=== PATIENT | female | born 1955 | race Two or more races ===

== ENCOUNTER 2020-02-16 22:45 | Emergency (ER) | payer SELFPAY ==
[~2020-02-16] VITALS: Ht 162.6 cm; Wt 86.2 kg
[2020-02-16 23:00] VITALS: BP 132/72
[2020-02-16 23:18] LABS: BASOPHILS % (AUTO) 2.5 % (0.0-2.0); EOSINOPHILS % (AUTO) 2.1 % (0.0-3.0); HEMATOCRIT 40.9 % (37.0-47.0); HEMOGLOBIN 14.9 G/DL (12.0-16.0); LYMPHOCYTES % (AUTO) 32.4 % (20.0-45.0); MEAN CORPUSCULAR VOLUME 90 FL (80-99); MONOCYTES % (AUTO) 8.5 % (1.0-10.0); NEUTROPHILS % (AUTO) 54.5 % (45.0-75.0); PLATELET COUNT 267 K/UL (150-450); RED BLOOD COUNT 4.55 M/UL (4.20-5.40); WHITE BLOOD COUNT 8.8 K/UL (4.8-10.8)
--- NOTE | 2020-02-16 23:21 | Emergency Room Report ---
History of Present Illness General Chief Complaint: Eye Problems Source: Patient Present Illness HPI 64-year-old female with no prior medical history presents with 2weeks vision loss on the right eye. Denies associated trauma, headache, n/v/d, weakness, chest pain, shortness of breath, fever, neck pain, rash, chest pain, shortness of breath or other symptoms She delayed seeking care until now because she did not want to come to the hospital. She is accompanied by her son who urged her to come to the ER for a checkup. States she feels as if her right lateral 1/3 to half part of her eye is going black in the middle. The patient's symptoms were gradual onset, severity was moderate, duration since 14 days. Quality: Progressive right vision loss Past medical history: Denies Past surgical history: Denies Smoking: Denies Alcohol use: Denies Drug use: Denies Review of systems: CONST: No fevers or chills, No night sweats PULMONARY: No productive cough, No shortness of breath CARDIAC: No chest pain, No palpitations GI: No vomiting, No diarrhea , No melena_or_BRBPR : No dysuria, No hematuria, No discharge NEURO: No new_focal_weakness_or_numbness, No confusion, No vision changes 14 point Review of Systems is otherwise negative except per HPI Physical Exam: GENERAL: Awake_alert_ nontoxic, no acute distress Spo2 98% on RA -normal EYES: Extraocular muscles are intact. Conjunctivae clear. Lids without swelling External: no evidence of periorbital rash, swelling, proptosis, lacerations, abrasions, or foreign body (OU) Lids / Lashes: normal without any lig lag (OU) Conjunctiva: normal, no injection or chemosis (OU) Sclera: white, without any injection (OU) Cornea: clear without any visible defect, foreign body, or corneal ulcer Anterior Chamber: deep, quiet, without any cell or flare (OU) Foreign body: none visualized, upper eyelid flipped (OU) Visual acuity: OD fingers only. Cannot visualize snellen chart OS 20/30 OU 20/30 Pupils: equal, round, and reactive bilaterally Extraocular movements intact without evidence of entrapment Visual henning full to confrontation ENT: External nose and ear normal_in_appearance. Oropharynx clear. Head_atraumatic, Moist_oral_mucosa NECK: No JVD. No meningismus. No thyromegaly. Supple. Trachea midline RESP: Normal respiratory effort. Symmetric rise. No stridor. Clear_to_auscultation_No_rales_No_wheezes CARDIAC: Tachycardic. and regular rhytm. No_significant pedal edema. ABDOMEN: Soft. Nondistended. Nontender_No_rebound_or_guarding. MSK: Normal muscle tone, without rigidity. Extremities without asymmetric deformity or swelling. SKIN: Warm and dry. No visible cyanosis or pallor NEUROLOGIC: Alert, oriented x3. Motor_and_sensation_grossly_intact. No truncal ataxia. Gait_normal Psych: Normal mood and affect, normal judgment and insight - COORDINATION OF CARE Case was discussed with: Patient , Patient's Family Any labs and imaging that were ordered were interpreted as part of the medical decision making: Medical Decision Making/Plan: Differential for progressive R vision loss: retinal detachment, vitreous hemorrhage, ocular migraine, doubt uveitis, primary headache (migraine, tension, cluster), intracranial mass / tumor, DOUBT meningitis, encephalitis, increased intracranial pressure, mastoiditis, dural venous thrombosis, temporal arteritis, acute angle closure glaucoma, among others. On exam, patient is unable to visualize anything from her R eye. L eye VA is 20/30 Ocular US performed at bedside shows large posterior retinal detachment anchored at the optic disk. Slit lamp shows hazy retina. VA is only intact to fingers on the R. Suspect mac off retinal detachment. Patient was informed of her diagnosis and I educated both the patient and the son that they need an emergent follow up with ophthalmology Shared medical decision making performed. Son verbalizes his understanding that mother needs to go to tertiary center such as [facility] or [facility] or [facility] for retinal specialist. They state they will go to [facility] after discharge here from ER. They decline ER to ER transfer because the son also has to take care of the grandma who is at home. They are aware of the risk of full loss of vision in the right eye if they delay specialty follow up. Labs are unremarkable CT head negative No temporal tenderness, jaw claudication or vision loss. Eyes are reactive, with normal appearing anterior chambers. No evidence of temporal arteritis or acute angle closure glaucoma. Given the patients presentation, with new type of headache and vomiting, despite normal neurologic exam, advanced imaging of the head with CT was felt to indicated and was obtained after weighing the risks and benefits of radiation to rule out cause of increased intracranial pressure such as tumor or mass which was negative. CT negative for tumor / mass / bleed. Pertinent results reviewed with the patient. They will go to [facility] right now to get ophthalmology follow-up I educated the patient on the current treatment plan including the risks, benefits, and alternatives. I also discussed the extent and limitations of the current evaluation. The patient expressed understanding and agreement with plan. I recommended PMD follow-up within 1-2 days. Also advised that the patient return to the Emergency Department as soon as possible if they experience any new, persistent, or worsening symptoms. 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 Rhythm: Normal sinus rhythm Rate: 74 bpm QTc: 426 Morphology: No_significant_ST_elevations_or_depressions, No STEMI Impression: Normal_sinus_rhythm_without_significant_abnormality Rhythm Strip Diag. Results Rhythm Strip Time: 00:22 EP Interpretation: yes Rate: 74 Rhythm: NSR, no PVC's, no ectopy Chest X-Ray Diagnostic Results Chest X-Ray Diagnostic Results : [place] Pilyibe Ale Chest X-Ray: Views: 1 view(s) Indication: Vision loss Findings: Normal heart size. Mediastinum normal. No infiltrate. Impression: No acute disease The X-ray(s) were independently viewed and interpreted contemporaneously Electronically signed by , Ignacia Goodman DO Reevaluation Time: 23:40 Last Vital Signs Date Time Temp Pulse Resp B/P (MAP) Pulse Ox O2 Delivery O2 Flow Rate FiO2 02/16/20 22:50 98.1 75 20 132/72 (92) 99 Room Air Status: improved Disposition: HOME, SELF-CARE Admit Decision Time: 23:40 Condition: Stable Referrals: NOT CHOSEN IPA/MD,REFERRING (PCP) Patient Instructions: Retinal Detachment Additional Instructions: Instructions for patient/city sanitarian: Go directly to [facility] or [facility] as we have discussed to obtain prompt ophthalmology follow-up. If you do not get prompt follow-up you may lose full vision in your right eye. Follow up with your physician in 1-2 days. Follow-up with your doctor sooner if your condition requires a more timely clinical reevaluation. Return to the emergency department immediately if you feel that your condition is worsening or if you have any new or concerning symptoms. Review your discharge instructions and take any prescriptions given as instructed. [facility] PROVIDES FREE OR LOW-COST HEALTH SERVICES TO PEOPLE WHO CAN SHOW PROOF THAT THEY LIVE IN [facility]. TO FIND MORE CLINICS PARTNERED WITH [facility] TO PROVIDE SERVICE, PLEASE CALL . Ignacia Goodman D.O. Feb 16, 2020 23:21
--- NOTE | 2020-02-16 23:26 | Diagnostic Imaging Report ---
EXAM: CT Head Without Intravenous Contrast CLINICAL HISTORY: HTN TECHNIQUE: Axial computed tomography images of the head/brain without intravenous contrast. CTDI is 53.4 mGy and DLP is 984.9 mGy-cm. One or more of the following dose reduction techniques were used: automated exposure control, adjustment of the mA and/or kV according to patient size, use of iterative reconstruction technique. COMPARISON: No relevant prior studies available. FINDINGS: Brain: No hemorrhage. No edema. Ventricles: No ventriculomegaly. Bones/joints: No acute fracture. Soft tissues: Unremarkable. Sinuses: No acute sinusitis. Mastoid air cells: No mastoid effusion. IMPRESSION: No acute intracranial process.
[2020-02-16 23:34] LABS: CALCIUM 9.3 MG/DL (8.5-10.1); CREATININE 1.1 MG/DL (0.55-1.30)
[2020-02-16 23:44] LABS: ALBUMIN 3.9 G/DL (3.4-5.0); ALBUMIN/GLOBULIN RATIO 0.9 (1.0-2.7); BILIRUBIN,TOTAL 0.7 MG/DL (0.2-1.0)
[2020-02-17 00:22] VITALS: BP 127/69
--- NOTE | 2020-02-17 13:53 | Cardiology Report ---
APPROVED REPORT EKG Measurement Heart [id number] <Conclusion> Normal sinus rhythm Normal ECG
--- NOTE | 2020-02-17 15:36 | Diagnostic Imaging Report ---
Procedure: XRAY Chest 1v Reason for study: Chest pain. Hypertension Comparison films: None. FINDINGS: A single one view chest is obtained. Vascularity is normal. The lung henning are clear bilaterally. Cardiac and mediastinal silhouette are within normal limits. CP angles are sharp. The bony thorax appear unremarkable. IMPRESSION: NO ACUTE CARDIOPULMONARY DISEASE.
== END 2020-02-17 00:22 | disposition home or self-care (01) ==
LOC: EMR 23:09
DX: H33.21 Serous retinal detachment, right eye (principal); R00.1 Bradycardia, unspecified; R07.9 Chest pain, unspecified; I10 Essential (primary) hypertension
CPT/HCPCS: 36415; 70450; 71045; 80053; 83036; 83880; 84478; 84484; 85025; 93005; 99284